=== PATIENT | female | born 1965 | race Two or more races ===

== ENCOUNTER 2017-07-28 14:23 | Outpatient (CLI) | payer OTHER | END 2017-07-28 15:24 | disposition home or self-care (01) | LOC: RAD 501 14:23 | DX: M77.32 Calcaneal spur, left foot (principal); M77.31 Calcaneal spur, right foot ==

== ENCOUNTER 2018-08-19 14:38 | Outpatient (CLI) | payer OTHER | END 2018-08-19 14:46 | disposition home or self-care (01) | LOC: RAD 501 14:38 | DX: M77.41 Metatarsalgia, right foot (principal); M77.42 Metatarsalgia, left foot ==

== ENCOUNTER 2024-02-19 08:15 | Day surgery (SDC) | payer OTHER ==
[2024-02-12 09:36] VITALS: BP 90/62
[2024-02-12 09:55] LABS: HEMATOCRIT 41.5 % (36.0-45.00); MEAN CELL VOLUME 87.1 fL (80.00-100.00); MEAN CORPUSCULAR HEMOGLOBIN 29.3 pg (27.00-32.0); MEAN CORPUSCULAR HGB CONC 33.7 g/dl (32.0-36.0); PLATELET COUNT 280 K/uL (150-450); RED BLOOD COUNT 4.76 M/uL (4.00-6.00); RED CELL DISTRIBUTION WIDTH 13.2 % (11.5-14.5)
[2024-02-12 10:08] LABS: PARTIAL THROMBOPLASTIN TIME 29.9 SECONDS (22.0-34.0); PROTHROMBIN TIME 10.9 SECONDS (9.0-11.5)
[2024-02-12 10:56] LABS: ALBUMIN 3.9 gm/dL (3.4-5.0); BILIRUBIN TOTAL 0.5 mg/dL (0.3-1.2); CALCIUM 9.2 mg/dL (8.5-10.1); CREATININE SERUM 0.76 mg/dL (0.55-1.02); GFR 78.16; GLOBULINA 3.5 G/DL (2.4-3.5); POTASSIUM 4.06 mEq/L (3.5-5.1); TOTAL PROTEIN 7.4 gm/dL (6.4-8.2)
[2024-02-12 11:04] LABS: PH,URINE 7.5 (5.0-8.0); URINE APPEARANCE Clear; URINE BILIRRUBIN Negative (NEGATIVE); URINE BLOOD Negative; URINE COLOR Yellow; URINE GLUCOSE Negative (NEGATIVE); URINE KETONE Negative (NEGATIVE); URINE LEUKOCYTE Negative; URINE NITRATE Negative; URINE PROTEIN Negative (NEGATIVE); URINE UROBILINOGEN 0.2 E.U./dl
[2024-02-12 11:08] LABS: URINE BACTERIA 4894.8 uL (0.0-1933); URINE WBC 6.6 uL (0.0-23.2)
[2024-02-12 11:09] LABS: URINE EPITHELIAL CELLS 1.2 uL (0.0-38.8); URINE RBC 1.2 uL (0.0-20.8)
[~2024-02-19] VITALS: Ht 170.2 cm; Wt 63.5 kg
[2024-02-19] MEDS ORDERED: KETOROLAC TROMETHAMINE 30 MG VIAL IV ONE (13:00)
[2024-02-19] MEDS ORDERED: CEFAZOLIN SODIUM 2,000 MG in 0.9 % SODIUM CHLORIDE 100 ML IV ONE (13:00)
[2024-02-19] MEDS ORDERED: KETOROLAC TROMETHAMINE 30 MG VIAL IM ONE (13:00)
== END 2024-02-19 14:55 | disposition home or self-care (01) ==
LOC: CIR.AMB 08:15
PROVIDERS: ATTEND Orthopaedic Surgery
DX: M67.821 Other specified disorders of synovium, right elbow (principal); M66.231 Spontaneous rupture of extensor tendons, right forearm; M67.931 Unspecified disorder of synovium and tendon, right forearm; M24.821 Other specific joint derangements of right elbow, not elsewhere classified